=== PATIENT | female | born 1995 | race Caucasian/White ===

== ENCOUNTER 2019-02-04 22:12 | Emergency (ER) | payer OTHER, SELFPAY ==
[2019-02-04 22:12] VITALS: BP 127/82; PULSE 110; RESP 15; TEMP 36.9; O2SAT 98; BMI 20.7
--- NOTE | 2019-02-04 22:25 | ED.VIS.GEN ---
History of Present Illness Chief Complaint: Complaint Informant: Patient Narrative: She presents with urinary frequency and dysuria. She thinks she might have a bladder infection. She is 28 weeks no complications with her . She was advised by her manager research and development to come in for further evaluation. She denies any back pain fevers or chills. She denies any vaginal symptoms. Severity is mild. No previous UTI. - Past Medical History (1) Abnormal electrocardiogram Status: Chronic (2) Fatigue Status: Chronic (3) Premature atrial complex Status: Chronic Past Medical History - Allergies and Home Meds Allergies/Adverse Reactions: Allergies No Known Allergies Allergy (Verified 02/04/19 22:16) Primary Care Physician: Iron Bridges DO [Primary Care Provider] - Prior records reviewed: Yes Past Medical History: - - See problem list Surgical History: no surgical history Smoking Status: Never smoker Alcohol: None Drugs: None Review of Systems General: Denies: Chills, Fever, Sweats Eyes: Denies: Visual changes - bilaterally, Diplopia ENT: Denies: Rhinorrhea, Sore throat Cardiovascular: Denies: Chest pain, Palpitations Respiratory: Denies: Dyspnea, Cough, Dyspnea on exertion Gastrointestinal: Denies: Abdominal pain, Nausea, Vomiting, Diarrhea, Melena, Hematochezia Genitourinary: Reports: Dysuria, Frequency. Denies: Hematuria Musculoskeletal: Denies: Back pain, Extremity Pain Skin: Denies: Rash, Wounds Neurological: Denies: Headache, Weakness, Numbness Physical Exam Vital Signs/Narrative: Vital Signs Temp Pulse Resp BP Pulse Ox 02/04/19 22:12 98.4 F 110 H 15 127/82 H 98 General: Well nourished, Well developed, No Acute Distress Head: Normocephalic, Atraumatic Eyes: Perrl, EOMI ENT: Moist mucous membranes, No rhinorrhea Neck: Supple, Nontender Cardiovascular: Regular rate, Regular rhythm, No murmurs Respiratory: No distress, CTA bilaterally, Chest nontender Abdomen: Soft, Nontender, Nondistended, Normal bowel sounds Back: Nontender, Normal Inspection Extremities: Nontender, No edema Skin: Normal color, No rash Neurological: Alert, Oriented x3, Cranial nerves II-XII grossly intact, Normal Strength, Normal Sensation Psychological: Normal affect, Normal Mood Diagnostic/Tx/Re-eval - Medical Decision Making Urine analysis obtained. She did not want any Tylenol. Analysis shows positive leukocytes. Significant white blood cell count in the urine. Rare bacteria noted in the urine. Positive epithelials as well. Due to the fact the patient has symptoms with leukocytes and rare bacteria I will treat her with antibiotics. She is . Given Keflex. She will use Tylenol. She will follow-up as an outpatient. Urine culture sent. ED Disposition - Plan for ED Patient: Disposition: Psychiatric Hospital or Unit Diagnosis: Cystitis Instructions: Bladder Infection, Female (Adult) Prescriptions: Cephalexin [Keflex] 250 mg PO TID #20 cap Prescription Printed Referrals: Iron Bridges DO [Primary Care Provider] -
[2019-02-04 22:35] LABS: Mucous, Urine 0 SEEN /hpf (<or=2+)
[2019-02-04 22:38] LABS: Color, Urine Yellow (Yellow); Glucose, Dipstick Normal (Normal); Ketone-Dipstick Negative (Negative); Leukocyte Esterase-Dipstick 500 /ul (Negative); Nitrite-Dipstick Negative (Negative); Occult Blood-Urine 25 /ul (Negative); Protein-Dipstick 15 mg/dl (Negative); Urine Bilirubin Dipstick Negative (Negative); Urine Clarity Sl. Cloudy (Clear); Urine Urobilinogen Normal (Normal)
[2019-02-04 22:44] LABS: White Blood Cells 25-50 SEEN /hpf (0-5)
[2019-02-04 22:45] LABS: Amorphous Sediment 1+ URATE; Bacteria RARE /hpf (None Seen); Red Blood Cells-Urine 0-5 SEEN /hpf (0-5); Squamous Epithelial Cells - UA 10-25 SEEN /hpf (5-10)
[2019-02-04] MEDS: Cephalexin 250 MG Capsule 500 MG PO (22:56)
[2019-02-04 22:58] VITALS: RESP 14
== END 2019-02-04 22:58 | disposition home or self-care (01) ==
PROVIDERS: Emergency Provider Emergency Medicine; Family Provider Family Medicine; PCP Family Medicine
DX: O23.13 Infections of bladder in pregnancy, third trimester (principal); Z3A.28 28 weeks gestation of pregnancy
CPT/HCPCS: 81001; 87086; 87088; 99283

== ENCOUNTER 2023-04-30 18:46 | Emergency (ER) | payer SELFPAY ==
[2023-04-30 18:47] VITALS: BP 153/83; PULSE 111; RESP 16; TEMP 36.6; O2SAT 100; BMI 20.9
--- NOTE | 2023-04-30 18:57 | EDS_ITS ---
HPI <MANDI Black - Last Filed: 04/30/23 20:04> History of Present Illness Chief Complaint: Numb/Ting Narrative Narrative: 27-year-old female was shopping at the grocery store when she felt a hot and cold flash, her entire face became numb and tingly, nd she felt short of breath. It lasted about 20 minutes and after drinking pop it seemed to resolve. She has had multiple episodes in the past where she gets to hot/cold flashes, sometimes with sweating, and feels lightheaded and occasionally passes out for couple seconds. She has never had the facial tingling with it before which is why she came in. She did not have a syncope episode today. She takes no medications. She states she has a primary care doctor and had blood work about a year ago. She reports normal p.o. intake recently no volume losses such as vomiting or diarrhea. PFSH <MANDI Black - Last Filed: 04/30/23 20:04> [facility] Medical History (Updated 04/30/23 @ 20:[address] Antony Encarnacion DO) Premature atrial complex Home Medications NK 04/30/23 [History Last Taken Unknown] Allergy/AdvReac Type Severity Reaction Status Date / Time No Known Allergies Allergy Verified 04/30/23 18:48 Social History (Updated 05/10/17 @ 13:[address] Osman Gunn MD) Smoking Status: Never smoker alcohol intake: never substance use type: does not use ROS <MANDI Black - Last Filed: 04/30/23 20:04> ROS ED ROS Narrative Constitutional: Negative for fever, chills, malaise. Eyes: Negative for visual change. CVS: Negative for palpitations, chest pain, syncope. Respiratory: Positive for shortness of breath. Negative for cough. GI: Negative for abdominal pain, nausea, vomiting, diarrhea, melena, hematochezia. Neuro: Negative for headache, motor/sensory dysfunction. EXAM <MANDI Black - Last Filed: 04/30/23 20:04> Physical Exam Narrative Exam Narrative: CONST: Patient sitting in no acute distress. EYES: Normal inspection. PERRL, EOMI. ENT: Normal inspection, moist mucous membranes. NECK: Normal inspection. RESP: No respiratory distress, CTAB. CVS: Regular rate and rhythm, no murmur, no gallop. ABD: Soft and nontender, no guarding or rebound, nondistended. SKIN: Color normal, no rash, warm, dry, intact. EXTREMITIES: Normal appearance, no pedal edema. NEURO: Oriented x4. Moving all extremities, normal strength and sensation, normal finger-nose and [id number] bilaterally. Normal gait. PSYCH: Normal affect. Const Vital Signs: 04/30/23 18:47 04/30/23 21:39 Temperature 97.8 F Temperature Source Temporal Pulse Rate 111 H 76 Respiratory Rate 16 18 Blood Pressure 153/83 H Blood Pressure Mean 106 Pulse Ox 100 98 Oxygen Delivery Method Room Air <Dr. Antony Encarnacion DO - Last Filed: 04/30/23 23:17> Physical Exam Const Vital Signs: 04/30/23 18:47 04/30/23 21:39 Temperature 97.8 F Temperature Source Temporal Pulse Rate 111 H 76 Respiratory Rate 16 18 Blood Pressure 153/83 H Blood Pressure Mean 106 Pulse Ox 100 98 Oxygen Delivery Method Room Air MDM <MANDI Black - Last Filed: 04/30/23 20:04> [facility] Narrative Medical decision making narrative: Patient had an episode of bilateral facial tingling and numb, hot and cold flashes, and shortness of breath today. She has had similar episodes before but did not have the paresthesias associated with it. Her symptoms resolved within 20 minutes after having a sugary drink. She appears well and nontoxic. Heart rate is 111 with otherwise normal vital signs. Her medical and neurological exam is benign. She has normal sensation in her face and extremities. Blood sugar is 74. EKG is sinus rhythm with occasional PVCs but no other abnormalities. When the attending spoke with her she also reported intermittent headaches and has not seen her doctor in a while so basic labs and a CT brain are pending. Lab Data Attestation: I reviewed the patient's lab results. Labs: Laboratory Results - last 24 hr 04/30/23 04/30/23 18:54 19:40 WBC 8.3 RBC 4.63 Hgb 14.2 Hct 42.3 MCV 91.4 MCH 30.7 MCHC 33.6 RDW Std Deviation 43.4 RDW Coeff of Amanda 13.0 Plt Count 240 MPV 9.7 Immature Gran % (Auto) 0.400 Neut % (Auto) 62.4 Lymph % (Auto) 27.8 [place] % (Auto) 6.9 Eos % (Auto) 2.1 Baso % (Auto) 0.4 Absolute Neuts (auto) 5.2 Absolute Lymphs (auto) 2.30 Nucleated RBC % 0 Sodium 138 Potassium 3.5 Chloride 108 H Carbon Dioxide 27.0 Anion Gap 3 L BUN 10 Creatinine 0.68 Estim Creat Clear Calc 113.80 Est GFR (MDRD) Af Amer 135 Est GFR (MDRD) Non-Af 111 BUN/Creatinine Ratio 14.7 Glucose 90 Calcium 8.7 POC Glucose 74 Radiography Diagnostic Testing: Clinical Impression(s) from Imaging Studies Brain CT 04/30/23 19:50 IMPRESSION: Normal unenhanced CT scan of the brain. Electronically Signed: Jack Savage MD at 20:36 EST , EKG Initial EKG: Attestation: I personally reviewed and interpreted this EKG as follows: Interpretation: Sinus Rhythm and No Acute Injury Pattern Comments: Sinus rhythm with occasional PVCs at 75 bpm Normal intervals, no ischemic changes No WPW <Dr. Antony Encarnacion, DO - Last Filed: 04/30/23 23:17> MDM MDM Narrative Medical decision making narrative: Patient had an episode of bilateral facial tingling and numb, hot and cold flashes, and shortness of breath today. She has had similar episodes before but did not have the paresthesias associated with it. Her symptoms resolved within 20 minutes after having a sugary drink. She appears well and nontoxic. Heart rate is 111 with otherwise normal vital signs. Her medical and neurological exam is benign. She has normal sensation in her face and extremities. Blood sugar is 74. EKG is sinus rhythm with occasional PVCs but no other abn ormalities. When the attending spoke with her she also reported intermittent headaches and has not seen her doctor in a while so basic labs and a CT brain are pending. Interventions / MDM: Differential diagnosis: Migraine headaches, nonspecific paresthesia's Diagnosis considered but do not suspect: Multiple sclerosis, brain tumor, CT negative. My EKG interpretation: Normal sinus rhythm rate of 76. Imaging independently reviewed and interpreted by myself: CT brain: No acute process also read by radiology. External documents reviewed: N/A Test considered but not ordered:N/A ED course: Attending note: Patient seen and evaluated with hospice home health aide. I perform my own [id number] evaluation. I agree with the plan of work-up. Nonspecific bilateral facial paresthesia while at the store. Is been having hot and cold flashes for years. Intermittent headaches on and off with migraine symptoms. Has not seen a doctor in years. No vomiting or diarrhea. Last menstrual period 2 weeks ago. Exam subjective paresthesias bilateral face. No focal deficits. No meningismus. EKG sinus rhythm basic labs obtained normal CT brain negative. Reassured. Discussed monitoring symptoms importance of follow-up with her PCP for which she does have for outpatient reevaluation further testing as needed. All questions were answered. Re-evaluation: stable Disposition discussed with patient/family/significant other: Patient and significant other Case discussed with consulting clinician: N/A This note was generated with [employer] dictation software. It may contain incorrect words, spelling, and punctuation that were not noted in checking the note before signing. Lab Data Labs: Laboratory Results - last 24 hr 04/30/23 04/30/23 18:54 19:40 WBC 8.3 RBC 4.63 Hgb 14.2 Hct 42.3 MCV 91.4 MCH 30.7 MCHC 33.6 RDW Std Deviation 43.4 RDW Coeff of Amanda 13.0 Plt Count 240 MPV 9.7 Immature Gran % (Auto) 0.400 Neut % (Auto) 62.4 Lymph % (Auto) 27.8 [place] % (Auto) 6.9 Eos % (Auto) 2.1 Baso % (Auto) 0.4 Absolute Neuts (auto) 5.2 Absolute Lymphs (auto) 2.30 Nucleated RBC % 0 Sodium 138 Potassium 3.5 Chloride 108 H Carbon Dioxide 27.0 Anion Gap 3 L BUN 10 Creatinine 0.68 Estim Creat Clear Calc 113.80 Est GFR (MDRD) Af Amer 135 Est GFR (MDRD) Non-Af 111 BUN/Creatinine Ratio 14.7 Glucose 90 Calcium 8.7 POC Glucose 74 Radiography Diagnostic Testing: Clinical Impression(s) from Imaging Studies Brain CT 04/30/23 19:50 IMPRESSION: Normal unenhanced CT scan of the brain. Electronically Signed: Jack Savage MD at 20:36 EST , Discharge Plan Triage Chief Complaint: Numb/Ting ED Midlevel Provider: Saniya Mackey ED Provider: Antony Encarnacion Dx/Rx/DC Orders Clinical Impression: Facial paresthesia, Headache Instructions: Self-Care for Headaches, ED Paraesthesias Prescriptions: No Action NK Primary Care Provider: Iron Bridges Referrals: Iron Bridges DO [Primary Care Provider] - 5-7 Days Activity Restrictions/Additional Instructions: EKG normal, labs are normal. CT brain normal. Monitor symptoms follow-up with your doctor. Disposition Disposition: Home, Self Care Discharge Date/Time: 04/30/23 21:40
--- NOTE | 2023-04-30 18:58 | EKG12_ITS ---
Test Reason : NUMB/TING Blood Pressure : / mmHG Vent. Rate : 075 BPM Atrial Rate : 075 BPM P-R Int : 124 ms QRS Dur : 084 ms QT Int : 386 ms P-R-T Axes : 071 059 054 degrees QTc Int : 431 ms Sinus rhythm with occasional Premature ventricular complexes Otherwise normal ECG Confirmed by KITTY SORENSEN, VIELKA ([id number]), copy editor KATHERINE URENA ([id number]) on 05/03/2023 6:21:36 AM Referred By: Confirmed By:REFUGIO TANG MD
[2023-04-30 19:12] LABS: Bedside Glucose 74 mg/dL (74-106)
--- NOTE | 2023-04-30 19:50 | CT_ITS ---
STUDY: CT BRAIN WITHOUT CONTRAST REASON FOR EXAM: Female, 27 years old. headache RADIATION DOSAGE (If Supplied By Facility): CTDIvol = ( 44.99 ) mGy, DLP = ( 779.24 ) mGycm TECHNIQUE: Transaxial CT imaging of the brain was performed without administration of intravenous contrast material. Individualized dose optimization techniques were used for this CT. COMPARISON: No relevant priors. FINDINGS: Normal soft tissue structures. Normal calvarium. Normal size ventricles and extra-axial spaces for the patient''s age. Normal white matter tracts of the cerebral hemispheres. Normal basal ganglia and thalami. Normal brainstem. Normal cerebellum. There is no intracranial hemorrhage. There are no findings of an acute ischemic infarction. Normal visualized paranasal sinuses. CT/Brain/Head without Contrast IMPRESSION: Normal unenhanced CT scan of the brain. Electronically Signed: Jack Savage MD at 20:36 EST ,
[2023-04-30 20:15] LABS: Absolute Neutrophil Count 5.2 X10^3/uL (2.0-7.7); Basophil# 0.03 X10^3/uL; Basophil% 0.4 % (0-1); Eosinophil# 0.17 X10^3/uL; Eosinophils% 2.1 % (0-5); Hematocrit 42.3 % (37-47); Hemoglobin 14.2 g/dL (12.0-15.0); Lymphocyte % 27.8 % (19-41); Mean Corp Hgb Conc 33.6 g/dL (32-36); Mean Corpuscular Hgb 30.7 pg (27.0-32.0); Mean Corpuscular Volume 91.4 fL (81-99); Mean Platelet Vol. 9.7 fl (6.2-12.0); Monocyte# 0.57 X10^3/uL; Monocyte% 6.9 % (0-10); NRBC Flagged by Analyzer 0 % (0-5); Neutrophil # 5.16 X10^3/uL (2.7-7.7); Neutrophil % 62.4 % (47-70); Platelet Count 240 K/mm3 (150-450); RBC Distribution Width SD 43.4 fl (35.1-43.9); Red Blood Count 4.63 M/mm3 (4.2-5.4); White Blood Count 8.3 K/mm3 (4.4-11.0)
[2023-04-30 20:32] LABS: Anion Gap 3 (5-15); BUN 10 mg/dL (7-18); BUN/Creat Ratio 14.7 RATIO (10-20); Calcium,Total 8.7 mg/dL (8.5-10.1); Chloride 108 mmol/L (98-107); Creatinine, Serum 0.68 mg/dL (0.55-1.02); EST Glomerular Filtration Rate 111 mL/min (>60); Est Glom Filt Rate - Afr Amer 135 mL/min (>60); Glucose 90 mg/dL (74-106); Potassium 3.5 mmol/L (3.5-5.1); Sodium Level 138 mmol/L (136-145)
[2023-04-30 21:39] VITALS: PULSE 76; RESP 18; O2SAT 98
== END 2023-04-30 21:40 | disposition home or self-care (01) ==
PROVIDERS: Physician Assistant; Emergency Provider Emergency Medicine; PCP Family Medicine; Visit Provider Emergency Medicine
DX: R20.2 Paresthesia of skin (principal); R51.9 Headache, unspecified
CPT/HCPCS: 70450; 80048; 82962; 85025; 93005; 99282; A4216